=== PATIENT | female | born 1970 | race Caucasian/White ===

== ENCOUNTER → 2024-12-21 | Outpatient (CLI) | payer OTHER ==
[2024-12-21 14:58] VITALS: BP 109/69; PULSE 70; RESP 16; TEMP 98.1
--- NOTE | 2024-12-21 16:56 | P.SLEEP ---
History of Present Illness H&P Date: 12/21/24 This is a 55-year-old female patient is coming in to be evaluated for chronic fatigue and sleepiness. The patient has been having this problems for the past 6 months to a year. She feels exhausted during the day and she is unable to function at work. 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 She is currently living with her parents and she is taking care of her ill mother who suffers from dementia and this has added a lot of stress in her life. No history of alcoholism. No self smoking. No self substance abuse. She is sleeping in a separate bedroom and she does not have any bed partner. As such, the patient is not sure if she snores. She denies waking up choking or gasping for air. No insomnia. No sleepwalking. No heartburn. No restlessness in lower extremities. No sleep talking. She can nap at any time if she is given the opportunity to do so. She goes to bed at 10:30 PM and she wakes up between 530 and 6 AM in the morning. She maintains the same sleep schedule on weekends. She is averaging about 6 to 8 hours of sleep. Waking up tired and she has difficulties memory and concentration during the day. No recent weight gain. No head trauma. No stroke. No metabolic disorders. No psychiatric disorder. She gives history of Raynaud's disease and at one point in her life she was told to have pulm hypertension. Further investigation was done at a young age for connective tissue disease and the patient tested negative. No active arthritis. No skin rashes. No vision changes. Review of Systems 14 point review of system was done and the positive findings all mentioned above in history of present illness Past Medical History Past Medical History: Asthma Additional Past Medical History / Comment(s): pulmonary hypertension, sinus headaches in the past History of Any Multi-Drug Resistant Organisms: None Reported Past Surgical History: Tonsillectomy Additional Past Surgical History / Comment(s): wisdom teeth extracted Past Anesthesia/Blood Transfusion Reactions: Previous Problems w/ Anesthesia Additional Past Anesthesia/Blood Transfusion Reaction / Comment(s): hard time to wake up after wisdom tooth extraction Past Psychological History: No Psychological Hx Reported Smoking Status: Never smoker Past Alcohol Use History: Rare Past Drug Use History: Marijuana - Past Family History Mother Family Medical History: Fibromyalgia, Hyperlipidemia, Hypertension, Sleep Apnea/CPAP/BIPAP, Thyroid Disorder Additional Family Medical History / Comment(s): arthritis unknown type, head aches, NARCOLEPSY Father Additional Family Medical History / Comment(s): sinus headaches Physical Exam Vitals: Vital Signs Temp Pulse Resp BP Pulse Ox 12/21/24 14:53 98.1 F 70 16 109/69 99 Intake and Output 12/21/24 12/21/24 12/21/24 06:59 14:59 22:59 Other: Weight 51.256 kg The patient appeared well nourished and normally developed. Vital signs as documented. Head exam is unremarkable. No scleral icterus or corneal arcus noted. Neck is without jugular venous distension, thyromegaly, or carotid bruits. Carotid upstrokes are brisk bilaterally. Lungs are clear to auscultation and percussion. Cardiac exam reveals the PMI to be normally sized and situated. Rhythm is regular. First and second heart sounds normal. No murmurs, rubs or gallops. Abdominal exam reveals normal bowel sounds, no masses, no organomegaly and no aortic enlargement. Extremities are nonedematous and both femoral and pedal pulses are normal. Examination of the skin revealed no evidence of significant rashes, suspicious appearing nevi or other concerning lesions. Neurologically, the patient is awake and alert and the patient does not have any focal neurological deficit. Cranial nerves are essentially intact. Assessment and Plan Plan: Chronic fatigue/sleepiness with an [place] score of 18, current on the investigation. Obviously, the patient is concerned about her sleep quality. Nevertheless, my overall clinical suspicion for obstructive sleep apnea is quite low as the patient is not obese. Her body mass index is 21.9 and she has no significant crowding of the posterior pharynx. She has a slight overbite. No other major comorbidities. History of Raynaud's disease and pulm hypertension obviously raises the concern for underlying connective tissue disease. However, this has not been confirmed or diagnosed on previous investigations. The patient is requesting further evaluation and testing Plan Will proceed with a screening polysomnography. As mentioned, the suspicion for obstructive sleep apnea is low. No indication for any narcolepsy as the patient has no sleep paralysis, hallucinations or cataplexy. No personal or family history of any sleep disorders. No clear history of any underlying psychiatric disorder. Will proceed with screen polysomnography. Will need an extensive blood workup including connective tissue disease markers at a later stage. Will make further recommendations based on the results of the sleep study. Sleep Note - Sleep Data ESS Total: 18 - Sleep Note Sleep Note: Temperature: 98.1 F Pulse Rate: 70 Respiratory Rate: 16 Blood Pressure: 109/69 SpO2: 99 Height: 5 ft 0.2 in Weight: 51.256 kg BMI: Neck Circumference: 12.5
== END ==
LOC: 3 N SLEEP 14:35
PROVIDERS: ATTEND Internal Medicine Critical Care Medicine
DX: G47.33 Obstructive sleep apnea (adult) (pediatric) (principal); I73.00 Raynaud's syndrome without gangrene; I10 Essential (primary) hypertension
CPT/HCPCS: 99202